=== PATIENT | female | born 1950 | race Caucasian/White ===

== ENCOUNTER 2020-08-24 11:27 | Emergency (ER) | payer MEDICARE, BC ==
[2020-08-24 12:21] LABS: CHLORIDE,CL 104 mEq/L (98-106); SODIUM,NA 141 mEq/L (136-145)
[2020-08-24 12:25] VITALS: BP 129/60; PULSE 59
--- NOTE | 2020-08-24 12:32 | EDM.PDOC ---
ED HPI GENERAL MEDICAL PROBLEM - General Chief Complaint: General Stated Complaint: LT ARM PAIN Time Seen by Provider: 08/24/20 11:55 Source of Information: Reports: Patient, RN History Limitations: Reports: No Limitations - History of Present Illness INITIAL COMMENTS - FREE TEXT/NARRATIVE: States that she was having some left arm pain. She describes it as a shooting pain from her shoulder down into her little finger. She states that it comes and goes. She has had NH in the past and the only pain that she had at that time was arm pain. Relates that she has partial rotator cuff tear on the left and some shoulder pain but felt that this was different. No nausea or diaphoresis. Did feel that she may have been SOB with it but unsure if that was because it made her nervous or not. Onset: Gradual Duration: Intermittent Location: Reports: Upper Extremity, Left Left Shoulder Pain Score (Numeric/FACES): 0 - Related Data Allergies Allergy/AdvReac Type Severity Reaction Status Date / Time acetaminophen Allergy Cannot Verified 08/24/20 11:35 [From Coricidin] Remember amoxicillin trihydrate Allergy Cannot Verified 08/24/20 11:35 [From Amoxil] Remember chlorpheniramine Allergy Cannot Verified 08/24/20 11:35 [From Coricidin] Remember chlorpheniramine maleate Allergy Cannot Verified 08/24/20 11:35 [From Coricidin] Remember clindamycin Allergy Cannot Verified 08/24/20 11:35 Remember morphine Allergy Cannot Verified 08/24/20 11:35 Remember phenylpropanolamine HCl Allergy Cannot Verified 08/24/20 11:35 [From Coricidin] Remember Home Meds: Home Meds Aspirin [Halfprin] 162 mg PO TID 02/22/14 [History] Cyanocobalamin (Vitamin B-12) [Vitamin B-12] 1 tab SL DAILY 02/22/14 [History] Cyclobenzaprine [Flexeril] 1 tab PO BEDTIME PRN 02/22/14 [History] Metoprolol Succinate [Toprol XL] 12.5 mg PO DAILY 02/22/14 [History] guaiFENesin [Mucinex] 600 mg PO BID PRN 02/22/14 [History] traMADol [Ultram] 1 - 2 tab PO Q6H PRN 02/22/14 [History] Past Medical History Cardiovascular History: Reports: NH Musculoskeletal History: Reports: Arthritis - Past Surgical History Female Surgical History: Reports: Breast Implant Social & Family History - Tobacco Use Tobacco Use Status *Q: Never Tobacco User - Living Situation & Occupation Living situation: Reports: , with Spouse Occupation: Employed ED ROS GENERAL - Review of Systems Review Of Systems: See Below Constitutional: Denies: Fever, Chills, Weakness, Diaphoresis HEENT: Reports: No Symptoms Respiratory: Reports: Shortness of Breath Cardiovascular: Denies: Chest Pain GI/Abdominal: Reports: No Symptoms : Reports: No Symptoms Musculoskeletal: Reports: Arm Pain Skin: Reports: No Symptoms Neurological: Reports: No Symptoms ED EXAM, GENERAL - Physical Exam Exam: See Below Exam Limited By: No Limitations General Appearance: Alert, WD/WN, No Apparent Distress Ears: Normal External Exam, Normal Canal, Normal TMs Nose: Normal Inspection Throat/Mouth: Normal Inspection, Normal Oropharynx, Normal Voice Head: Atraumatic, Normocephalic Neck: Normal Inspection, Supple, Non-Tender, Full Range of Motion Respiratory/Chest: No Respiratory Distress, Lungs Clear, Normal Breath Sounds Cardiovascular: Regular Rate, Rhythm, No Edema GI/Abdominal: Normal Bowel Sounds, Soft, Non-Tender Back Exam: Normal Inspection Extremities: Normal Inspection, Normal Range of Motion, Non-Tender, No Pedal Edema, Normal Capillary Refill Neurological: Alert, Oriented Psychiatric: Normal Affect Skin Exam: Warm, Dry, Intact Course - Vital Signs Last Recorded V/S: Last Vital Signs Temp 97.5 F 08/24/20 12:25 Pulse 59 L 08/24/20 12:25 Resp 18 08/24/20 12:25 BP 129/60 08/24/20 12:25 Pulse Ox 97 08/24/20 12:25 - Orders/Labs/Meds Labs: Laboratory Tests 08/24/20 08/24/20 08/24/20 Range/Units 11:59 11:59 11:59 WBC 8.2 (5.0-10.0) 10^3/uL RBC 3.82 L (4.00-5.50) 10^6/uL Hgb 13.1 (12.0-16.0) g/dL Hct 37.9 (37.0-47.0) % MCV 99.2 H (82.0-94.0) fL MCH 34.3 H (27.0-32.0) pg MCHC 34.6 (33.0-38.0) g/dL RDW Coeff of Vito 13.5 (11.0-15.0) % Plt Count 241 (150-400) 10^3/uL Neut % (Auto) 65.7 (35-85) % Lymph % (Auto) 22.6 (10-55) % [place] % (Auto) 10.0 (0-16) % Eos % (Auto) 1.5 (0-5) % Baso % (Auto) 0.2 (0-3) % Neut # (Auto) 5.41 (1.80-7.00) 10^3/uL Lymph # (Auto) 1.86 (1.00-4.80) 10^3/uL [place] # (Auto) 0.82 H (0.00-0.80) 10^3/uL Eos # (Auto) 0.12 (0.00-0.45) 10^3/uL Baso # (Auto) 0.02 10^3/uL PT 10.5 (9.7-12.3) SEC INR 0.96 (0.92-1.18) APTT 23.7 (23.2-32.3) SEC Sodium 141 (136-145) mEq/L Potassium 4.7 (3.5-5.0) mEq/L Chloride 104 (98-106) mEq/L Carbon Dioxide 28 (21-32) mmol/L BUN 17 (7-18) mg/dL Creatinine 0.8 (0.6-1.0) mg/dL Est Cr Clr Drug Dosing 53.23 mL/min Estimated GFR (MDRD) > 60 (>=60) mL/min Glucose 90 D (75-99) mg/dL Calcium 8.8 (8.4-10.1) mg/dL Total Bilirubin 0.4 (0.0-1.0) mg/dL AST 16 (15-37) U/L ALT 23 (12-78) U/L Alkaline Phosphatase 98 (46-116) U/L Lactate Dehydrogenase 154 (100-190) U/L Creatine Kinase 42 (21-215) U/L Troponin I < 0.017 (0.00-0.06) ng/mL Total Protein 6.8 (6.4-8.2) g/dL Albumin 3.5 (3.4-5.0) g/dL Lipase 81 (73-393) U/L - Re-Assessments/Exams Free Text/Narrative Re-Assessment/Exam: 08/24/20 1200 Discussed that labs, EKG and CXR are all normal. PAin is mildly reproducible with movment of the left arm. The shooting pain into the little finger was not reproducible. Discussed that we will discharge her at this time and if any new concerns she should return for recheck. Departure - Departure Time of Disposition: 12:27 Disposition: Home, Self-Care 01 Condition: Good Clinical Impression: Radicular pain in left arm - Discharge Information *PRESCRIPTION DRUG MONITORING PROGRAM REVIEWED*: Not Applicable *COPY OF PRESCRIPTION DRUG MONITORING REPORT IN PATIENT ROXY: Not Applicable Referrals: Aleyda Stark PA-C [Primary Care Provider] - Forms: ED Department Discharge Additional Instructions: return to normal activities If pain returns or changes then recheck in the clinic Tylenol as needed for discomfort Sepsis Event Note (ED) - Evaluation Sepsis Screening Result: No Definite Risk - Problem List & Annotations (1) Radicular pain in left arm SNOMED Code(s): 58095086, 282288102 Code(s): M79.2 - NEURALGIA AND NEURITIS, UNSPECIFIED Status: Acute Priority: High - Problem List Review Problem List Initiated/Reviewed/Updated: Yes
[2020-08-24 12:35] LABS: PTT,PARTIAL THROMBOPLSTIN TIME 23.7 SEC (23.2-32.3)
== END 2020-08-24 12:35 | disposition home or self-care (01) ==
LOC: CC.ED 11:27
DX: M54.12 Radiculopathy, cervical region (principal); I25.2 Old myocardial infarction; Z88.0 Allergy status to penicillin; Z88.8 Allergy status to other drugs, medicaments and biological substances; Z88.6 Allergy status to analgesic agent; Z88.1 Allergy status to other antibiotic agents; Z79.82 Long term (current) use of aspirin
CPT/HCPCS: 36415; 71046; 80053; 82550; 83615; 83690; 84484; 85025; 85610; 85730; 93005; 99283; 99284-25

== ENCOUNTER 2022-12-26 18:30 | Inpatient (IN) | payer MEDICARE ==
[2022-12-26] MEDS ORDERED: Morphine 2 MG/ML SYRINGE IM ONE (18:44)
[2022-12-26] MEDS ORDERED: Acetaminophen 500 MG Tab PO ONE (18:44)
[2022-12-26] MEDS ORDERED: Sodium Chloride 0.9% 1,000 ML IV ONE (18:45)
[2022-12-26] MEDS ORDERED: Ondansetron 4 MG/2 ML SDV IVPUSH ONE (18:49)
[2022-12-26 19:16] LABS: BASOPHILS ABSOLUTE AUTO 0.01 10^3/uL (0.00-0.50); BASOPHILS PERCENT AUTO 0.1 % (0-1); EOSINOPHILS ABSOLUTE AUTO 0.02 10^3/uL (0.00-1.50); EOSINOPHILS PERCENT AUTO 0.2 % (0-6); HEMATOCRIT 31.4 % (37.0-47.0); HEMOGLOBIN 10.5 g/dL (12.0-16.0); IMMATURE GRAN ABSOLUTE AUTO 0.03 10^3/uL (0.00-0.49); IMMATURE GRAN PERCENT AUTO 0.3 % (0.0-4.9); LYMPHOCYTES ABSOLUTE AUTO 1.63 10^3/uL (0.60-5.00); LYMPHOCYTES PERCENT AUTO 14.6 % (24-44); MEAN CORPUSCULAR HGB CONC 33.4 g/dL (32.0-36.0); MEAN CORPUSCULAR VOLUME 98.7 fL (83.0-97.0); MONOCYTES ABSOLUTE AUTO 1.48 10^3/uL (0.00-1.50); MONOCYTES PERCENT AUTO 13.3 % (0-10); NEUTROPHILS ABSOLUTE AUTO 7.97 x10^3/uL (1.80-8.00); NEUTROPHILS PERCENT AUTO 71.5 % (41-71); PLATELET COUNT,PLT 170 10^3/uL (150-400); RED BLOOD CELL COUNT 3.18 x10^6/uL (4.00-5.50); WHITE BLOOD CELL COUNT,WBC 11.1 10^3/uL (4.0-11.0)
[2022-12-26] MEDS ORDERED: Iopamidol 755 Mg/ML 100 ML Bottle IVPUSH ONE (19:22)
[2022-12-26] MEDS ORDERED: Metoclopramide 10 MG/2 ML SDV IVPUSH PRN (19:32)
[2022-12-26] MEDS ORDERED: Morphine 2 MG/ML SYRINGE IV ONE (19:32)
[2022-12-26 19:33] LABS: ALANINE AMINOTRANSFERASE,ALT 26 U/L (12-78); ALBUMIN 2.8 g/dL (3.4-5.0); ALKALINE PHOSPHATASE 79 U/L (46-116); ASPARTATE AMNIOTRANSFERASE,AST 34 U/L (15-37); BILIRUBIN TOTAL 0.5 mg/dL (0.0-1.0); BLOOD UREA NITROGEN,BUN 12 mg/dL (7-18); CALCIUM 8.3 mg/dL (8.4-10.1); CARBON DIOXIDE,CO2 28 mmol/L (21-32); CHLORIDE,CL 99 mEq/L (98-106); CREATININE 0.7 mg/dL (0.6-1.0); GLUCOSE RANDOM 123 mg/dL (75-99); LACTIC ACID 1.2 mmol/L (0.4-2.0); MAGNESIUM 1.7 mg/dL (1.8-2.4); POTASSIUM,K 3.9 mEq/L (3.5-5.0); PROTEIN TOTAL,TP 6.1 g/dL (6.4-8.2); SODIUM,NA 133 mEq/L (136-145)
[2022-12-26 19:34] LABS: ESTIMATED GFR 93 mL/min (>=60)
[2022-12-26] MEDS ORDERED: Piperacillin/Tazobactam 4.5 GM in Sodium Chloride 0.9% 100 ML IV ONE (20:16)
[2022-12-26 21:00] LABS: APPEARANCE,URINE CLEAR (CLEAR); BILIRUBIN,URINE NEGATIVE (NEGATIVE); COLOR,URINE YELLOW (YELLOW); GLUCOSE,URINE NEGATIVE (NEGATIVE); KETONES,URINE TRACE mg/dL (NEGATIVE); LEUKOCYTE ESTERASE,URINE NEGATIVE (NEGATIVE); NITRITE,URINE NEGATIVE (NEGATIVE); OCCULT BLOOD,URINE SMALL (NEGATIVE); PROTEIN,URINE NEGATIVE (NEGATIVE); UROBILINOGEN,URINE 0.2 EU/dL (0.2-1.0)
[2022-12-26 21:06] LABS: BACTERIA,URINE OCCASIONAL /HPF (NOT SEEN); EPITHELIAL CELLS,URINE FEW /HPF (NOT SEEN); WBC,URINE 0-5 /HPF (0-5)
[2022-12-27] MEDS ORDERED: Temazepam 15 MG Cap PO PRN (01:19)
[2022-12-27] MEDS ORDERED: Ondansetron 4 MG/2 ML SDV IV PRN (01:19)
[2022-12-27] MEDS ORDERED: guaiFENesin 200 MG Tab PO PRN (01:19)
[2022-12-27] MEDS ORDERED: Docusate Sodium 100 MG Cap PO PRN (01:19)
[2022-12-27] MEDS ORDERED: oxyCODONE 5 MG Tab PO PRN (01:19)
[2022-12-27] MEDS ORDERED: Acetaminophen 325 MG Tab PO PRN (01:19)
[2022-12-27] MEDS ORDERED: Cyclobenzaprine 10 MG Tab PO PRN (01:19)
[2022-12-27] MEDS ORDERED: traMADol 50 MG Tab PO PRN (01:19)
[2022-12-27] MEDS ORDERED: Polyethylene Glycol 3350 Powder 17 GM Packet PO PRN (01:19)
[2022-12-27] MEDS: ceFAZolin 2 GM Vial IVPUSH SCH ×4 (02:14→23:59)
[2022-12-27] MEDS: Cyanocobalamin (Vitamin B12) 1,000 MCG Tab PO SCH (07:42)
[2022-12-27] MEDS: Metoprolol Succinate 25 MG Tab.ER PO SCH (07:42)
[2022-12-27] MEDS ORDERED: Aspirin 81 MG Tab.EC PO SCH (08:00)
[2022-12-27 08:37] LABS: BASOPHILS ABSOLUTE AUTO 0.03 10^3/uL (0.00-0.50); BASOPHILS PERCENT AUTO 0.3 % (0-1); EOSINOPHILS PERCENT AUTO 0.9 % (0-6); HEMATOCRIT 30.9 % (37.0-47.0); HEMOGLOBIN 10.3 g/dL (12.0-16.0); IMMATURE GRAN ABSOLUTE AUTO 0.02 10^3/uL (0.00-0.49); IMMATURE GRAN PERCENT AUTO 0.2 % (0.0-4.9); LYMPHOCYTES ABSOLUTE AUTO 1.34 10^3/uL (0.60-5.00); LYMPHOCYTES PERCENT AUTO 12.6 % (24-44); MEAN CORPUSCULAR HGB CONC 33.3 g/dL (32.0-36.0); MONOCYTES ABSOLUTE AUTO 1.15 10^3/uL (0.00-1.50); MONOCYTES PERCENT AUTO 10.8 % (0-10); NEUTROPHILS ABSOLUTE AUTO 7.96 x10^3/uL (1.80-8.00); NEUTROPHILS PERCENT AUTO 75.2 % (41-71); PLATELET COUNT,PLT 174 10^3/uL (150-400); RED BLOOD CELL COUNT 3.12 x10^6/uL (4.00-5.50); WHITE BLOOD CELL COUNT,WBC 10.6 10^3/uL (4.0-11.0)
[2022-12-27 08:58] LABS: ALBUMIN 2.3 g/dL (3.4-5.0); BILIRUBIN TOTAL 0.4 mg/dL (0.0-1.0); CALCIUM 7.9 mg/dL (8.4-10.1); CREATININE 0.6 mg/dL (0.6-1.0); EST CRCL DRUG DOSING (CG) 65.84 mL/min; POTASSIUM,K 4.3 mEq/L (3.5-5.0); PROTEIN TOTAL,TP 5.6 g/dL (6.4-8.2)
[2022-12-27] MEDS ORDERED: Morphine 2 MG/ML SYRINGE IVPUSH ONE (09:16)
[2022-12-27] MEDS ORDERED: Naloxone 2 MG/2 ML Syringe IVPUSH PRN (09:16)
[2022-12-27] MEDS ORDERED: Ondansetron 4 MG/2 ML SDV IVPUSH ONE (09:17)
[2022-12-27] MEDS: Polyethylene Glycol 3350 Powder 17 GM Packet PO SCH (09:30)
[2022-12-27] MEDS ORDERED: Magnesium Sulfate/Water 2 GM in Premix Bag 1 BAG IV ONE (11:15)
[2022-12-27] MEDS: Famotidine 20 MG Tab PO SCH ×2 (11:46→19:40)
[2022-12-27] MEDS: Ketorolac 30 MG/ML SDV IVPUSH SCH ×3 (11:55→23:56)
[2022-12-27] MEDS: Acetaminophen/HYDROcodone 325-5 MG Tab PO PRN (12:37)
[2022-12-27] MEDS: Enoxaparin 40 MG/0.4 ML Syringe SUBCUT SCH (19:39)
[2022-12-28] MEDS: Acetaminophen/HYDROcodone 325-5 MG Tab PO PRN ×3 (04:09→21:43)
[2022-12-28] MEDS: Ketorolac 30 MG/ML SDV IVPUSH SCH ×4 (05:44→23:44)
[2022-12-28] MEDS: Polyethylene Glycol 3350 Powder 17 GM Packet PO SCH (07:37)
[2022-12-28] MEDS: Metoprolol Succinate 25 MG Tab.ER PO SCH (07:38)
[2022-12-28] MEDS: Famotidine 20 MG Tab PO SCH ×2 (07:38→19:31)
[2022-12-28] MEDS: Cyanocobalamin (Vitamin B12) 1,000 MCG Tab PO SCH (07:38)
[2022-12-28] MEDS: ceFAZolin 2 GM Vial IVPUSH SCH ×3 (07:38→23:45)
[2022-12-28 07:44] LABS: BASOPHILS ABSOLUTE AUTO 0.02 10^3/uL (0.00-0.50); BASOPHILS PERCENT AUTO 0.3 % (0-1); EOSINOPHILS ABSOLUTE AUTO 0.16 10^3/uL (0.00-1.50); EOSINOPHILS PERCENT AUTO 2.1 % (0-6); HEMATOCRIT 28.3 % (37.0-47.0); HEMOGLOBIN 9.5 g/dL (12.0-16.0); IMMATURE GRAN ABSOLUTE AUTO 0.01 10^3/uL (0.00-0.49); IMMATURE GRAN PERCENT AUTO 0.1 % (0.0-4.9); LYMPHOCYTES ABSOLUTE AUTO 1.75 10^3/uL (0.60-5.00); LYMPHOCYTES PERCENT AUTO 23.3 % (24-44); MEAN CORPUSCULAR HGB CONC 33.6 g/dL (32.0-36.0); MEAN CORPUSCULAR VOLUME 98.3 fL (83.0-97.0); MONOCYTES ABSOLUTE AUTO 0.79 10^3/uL (0.00-1.50); MONOCYTES PERCENT AUTO 10.5 % (0-10); NEUTROPHILS ABSOLUTE AUTO 4.78 x10^3/uL (1.80-8.00); NEUTROPHILS PERCENT AUTO 63.7 % (41-71); PLATELET COUNT,PLT 178 10^3/uL (150-400); RED BLOOD CELL COUNT 2.88 x10^6/uL (4.00-5.50); WHITE BLOOD CELL COUNT,WBC 7.5 10^3/uL (4.0-11.0)
[2022-12-28 08:11] LABS: ALBUMIN 2.2 g/dL (3.4-5.0); BILIRUBIN TOTAL 0.5 mg/dL (0.0-1.0); CREATININE 0.8 mg/dL (0.6-1.0); EST CRCL DRUG DOSING (CG) 49.38 mL/min; POTASSIUM,K 4.1 mEq/L (3.5-5.0); PROTEIN TOTAL,TP 5.4 g/dL (6.4-8.2)
[2022-12-28] MEDS: Enoxaparin 40 MG/0.4 ML Syringe SUBCUT SCH (19:31)
[2022-12-29] MEDS: Ketorolac 30 MG/ML SDV IVPUSH SCH ×2 (05:44→11:43)
[2022-12-29] MEDS: ceFAZolin 2 GM Vial IVPUSH SCH (07:49)
[2022-12-29] MEDS: Cyanocobalamin (Vitamin B12) 1,000 MCG Tab PO SCH (07:50)
[2022-12-29] MEDS: Famotidine 20 MG Tab PO SCH (07:50)
[2022-12-29] MEDS: Metoprolol Succinate 25 MG Tab.ER PO SCH (07:50)
[2022-12-29 08:07] LABS: BASOPHILS ABSOLUTE AUTO 0.03 10^3/uL (0.00-0.50); BASOPHILS PERCENT AUTO 0.5 % (0-1); EOSINOPHILS PERCENT AUTO 1.7 % (0-6); HEMATOCRIT 30.1 % (37.0-47.0); HEMOGLOBIN 10.2 g/dL (12.0-16.0); IMMATURE GRAN ABSOLUTE AUTO 0.01 10^3/uL (0.00-0.49); IMMATURE GRAN PERCENT AUTO 0.2 % (0.0-4.9); LYMPHOCYTES ABSOLUTE AUTO 1.47 10^3/uL (0.60-5.00); MEAN CORPUSCULAR HEMOGLOBIN 32.9 pg (27.0-32.0); MEAN CORPUSCULAR HGB CONC 33.9 g/dL (32.0-36.0); MEAN CORPUSCULAR VOLUME 97.1 fL (83.0-97.0); MONOCYTES ABSOLUTE AUTO 0.66 10^3/uL (0.00-1.50); MONOCYTES PERCENT AUTO 11.2 % (0-10); NEUTROPHILS PERCENT AUTO 61.4 % (41-71); PLATELET COUNT,PLT 207 10^3/uL (150-400); WHITE BLOOD CELL COUNT,WBC 5.9 10^3/uL (4.0-11.0)
[2022-12-29 08:17] LABS: ALBUMIN 2.4 g/dL (3.4-5.0); BILIRUBIN TOTAL 0.6 mg/dL (0.0-1.0); CALCIUM 8.2 mg/dL (8.4-10.1); CREATININE 0.8 mg/dL (0.6-1.0); EST CRCL DRUG DOSING (CG) 49.38 mL/min; POTASSIUM,K 3.6 mEq/L (3.5-5.0); PROTEIN TOTAL,TP 5.9 g/dL (6.4-8.2)
[2022-12-29] MEDS: Polyethylene Glycol 3350 Powder 17 GM Packet PO SCH (09:52)
[2022-12-29] MEDS ORDERED: Take Home: Cefuroxime 250 MG Tab, 2 Tab Pack PO ONE ×2 (09:55→09:57)
[2022-12-29 12:24] VITALS: BP 118/60; PULSE 68
== END 2022-12-29 12:00 | disposition home or self-care (01) | DRG 863 ==
LOC: CC.ED 18:30 → CC.MS 21:47 → CC.ED 23:10 → UNDOADMIN 23:25 → CC.MS 23:25
PROVIDERS: ADMIT Physician Assistant Medical; ATTEND Physician Assistant Medical
DX: T81.49XA Infection following a procedure, other surgical site, initial encounter (principal); L03.116 Cellulitis of left lower limb; Z88.1 Allergy status to other antibiotic agents; Z88.8 Allergy status to other drugs, medicaments and biological substances; Z88.5 Allergy status to narcotic agent; Z79.82 Long term (current) use of aspirin; Z79.899 Other long term (current) drug therapy; I25.2 Old myocardial infarction; Z98.82 Breast implant status; Z96.642 Presence of left artificial hip joint; Y83.1 Surgical operation with implant of artificial internal device as the cause of abnormal reaction of the patient, or of later complication, without mention of misadventure at the time of the procedure
CPT/HCPCS: 36415; 71045; 73701-LT; 80053; 81001; 83605; 83735; 84484; 85025; 87040; 93005; 93010; 96365; 96367; 96375; 99223; 99232; 99233; 99238; 99285-25; A9270-GY; J0690; J1650; J1885; J2270; J2405; J2543; J2765; J3370; J3475; J3490; J7030; J7050; Q9967

== ENCOUNTER 2023-09-01 13:37 | Emergency (ER) | payer MEDICARE ==
[2023-09-01 14:12] VITALS: BP 184/78; PULSE 74
[2023-09-01 14:14] LABS: BASOPHILS ABSOLUTE AUTO 0.02 10^3/uL (0.00-0.50); BASOPHILS PERCENT AUTO 0.3 % (0-1); EOSINOPHILS ABSOLUTE AUTO 0.08 10^3/uL (0.00-1.50); EOSINOPHILS PERCENT AUTO 1.2 % (0-6); HEMATOCRIT 41.6 % (37.0-47.0); HEMOGLOBIN 13.6 g/dL (12.0-16.0); LYMPHOCYTES PERCENT AUTO 36.8 % (24-44); MEAN CORPUSCULAR HEMOGLOBIN 32.8 pg (27.0-32.0); MEAN CORPUSCULAR HGB CONC 32.7 g/dL (32.0-36.0); MEAN CORPUSCULAR VOLUME 100.2 fL (83.0-97.0); MONOCYTES ABSOLUTE AUTO 0.54 10^3/uL (0.00-1.50); MONOCYTES PERCENT AUTO 8.3 % (0-10); NEUTROPHILS ABSOLUTE AUTO 3.49 x10^3/uL (1.80-8.00); NEUTROPHILS PERCENT AUTO 53.4 % (41-71); PLATELET COUNT,PLT 213 10^3/uL (150-400); RED BLOOD CELL COUNT 4.15 x10^6/uL (4.00-5.50); WHITE BLOOD CELL COUNT,WBC 6.5 10^3/uL (4.0-11.0)
[2023-09-01 14:29] LABS: ALANINE AMINOTRANSFERASE,ALT 20 U/L (12-78); ALBUMIN 3.9 g/dL (3.4-5.0); ALKALINE PHOSPHATASE 105 U/L (46-116); ASPARTATE AMNIOTRANSFERASE,AST 11 U/L (15-37); BILIRUBIN TOTAL 0.3 mg/dL (0.0-1.0); BLOOD UREA NITROGEN,BUN 20 mg/dL (7-18); C-REACTIVE PROTEIN < 0.50 mg/dL (<=0.50); CALCIUM 8.7 mg/dL (8.4-10.1); CARBON DIOXIDE,CO2 31 mmol/L (21-32); CHLORIDE,CL 104 mEq/L (98-106); CREATININE 1.1 mg/dL (0.6-1.0); EST CRCL DRUG DOSING (CG) 33.69 mL/min; ESTIMATED GFR 54 mL/min (>=60); GLUCOSE RANDOM 128 mg/dL (75-99); LIPASE 29 U/L (16-77); POTASSIUM,K 4.2 mEq/L (3.5-5.0); PROTEIN TOTAL,TP 7.2 g/dL (6.4-8.2); SODIUM,NA 144 mEq/L (136-145)
== END 2023-09-01 14:57 | disposition home or self-care (01) ==
LOC: CC.ED 13:37
DX: R07.2 Precordial pain (principal); I25.2 Old myocardial infarction; M19.90 Unspecified osteoarthritis, unspecified site; Z79.82 Long term (current) use of aspirin; Z79.899 Other long term (current) drug therapy; Z88.5 Allergy status to narcotic agent; Z88.1 Allergy status to other antibiotic agents; Z88.8 Allergy status to other drugs, medicaments and biological substances
CPT/HCPCS: 36415; 71046; 80053; 83690; 84484; 85025; 86140; 93005; 93010; 99284; 99285